=== PATIENT | male | born 1970 | race Caucasian/White ===

== ENCOUNTER → 2018-10-16 | Outpatient (CLI) | payer OTHER ==
[2018-10-16 08:39] LABS: BASOPHILS # (AUTO) 0.03 x10^3/uL (0-0.1); BASOPHILS % (AUTO) 0 % (0-1); EOSINOPHILS # (AUTO) 0.56 x10^3/uL (0-0.4); EOSINOPHILS % (AUTO) 6 % (1-7); LYMPHOCYTES # (AUTO) 2.09 x10^3/uL (1-3.4); LYMPHOCYTES % (AUTO) 23 % (22-44); MD NO; MEAN CORPUSCULAR HEMOGLOBIN 30.5 pg (27.5-34.5); MEAN CORPUSCULAR HGB CONC 32.9 g/dL (33.2-36.2); MEAN CORPUSCULAR VOLUME 92.7 fL (81-97); MEAN PLATELET VOLUME 6.5 fL (7.4-10.4); MONOCYTES # (AUTO) 0.66 x10^3/uL (0.2-0.8); MONOCYTES % (AUTO) 7 % (2-9); NEUTROPHILS # (AUTO) 5.68 x10^3/uL (1.8-6.8); NEUTROPHILS % (AUTO) 63 % (42-75); PLATELET COUNT 322 x10^3/uL (130-400); RED BLOOD COUNT 4.92 x10^6/uL (4.38-5.82); RED CELL DISTRIBUTION WIDTH 14.6 % (9.4-14.8)
[2018-10-16 08:51] LABS: ANION GAP 8 mmol/L (5-15); CALCIUM 8.7 mg/dL (8.5-10.1); CHLORIDE 109 mmol/L (98-107)
[2018-10-16 09:00] LABS: ALANINE AMINOTRANSFERASE 59 U/L (12-78); ALKALINE PHOSPHATASE 87 U/L (45-117); BILIRUBIN,TOTAL 0.7 mg/dL (0.2-1.0); CHOL/HDL RATIO 4.3; CHOLESTEROL, TOTAL 226 mg/dL (140-239); CREATININE 1.21 mg/dL (0.7-1.3); HDL CHOL % 23 % (26-37); HDL CHOLESTEROL (DIRECT) 52 mg/dL (40-60); LDL CHOLESTEROL,CALCULATED 158 mg/dL (54-169); PSA SCREEN 0.56 ng/mL (0.00-4.00); THYROID STIMULATING HORMONE 0.842 mIU/L (0.358-3.740); TOTAL PROTEIN 7.2 g/dL (6.4-8.2); TRIGLYCERIDES 81 mg/dL (50-200); VLDL CHOLESTEROL 16 mg/dL (0-25)
[2018-10-16 09:23] LABS: HEMOGLOBIN A1C 5.6 % (4.2-6.3)
== END | disposition home or self-care (01) ==
LOC: LAB 08:22
PROVIDERS: ATTEND Family Medicine
DX: Z13.1 Encounter for screening for diabetes mellitus (principal); Z13.220 Encounter for screening for lipoid disorders; Z12.5 Encounter for screening for malignant neoplasm of prostate; F41.9 Anxiety disorder, unspecified; F51.5 Nightmare disorder; R06.83 Snoring; R12 Heartburn; R39.12 Poor urinary stream; R53.83 Other fatigue; R68.82 Decreased libido
CPT/HCPCS: 36415; 80053; 80061; 82306; 83036; 84402; 84403; 84439; 84443; 85025; G0103

== ENCOUNTER 2018-12-20 15:21 | Outpatient (CLI) | payer OTHER | END 2018-12-20 23:59 | disposition home or self-care (01) | LOC: CVU 15:21 | PROVIDERS: ATTEND Internal Medicine Cardiovascular Disease | DX: I07.1 Rheumatic tricuspid insufficiency (principal) | CPT/HCPCS: 93306 ==

== ENCOUNTER 2019-01-10 08:07 | Outpatient (CLI) | payer OTHER | END 2019-01-10 23:59 | disposition home or self-care (01) | LOC: PETCFH 08:07 | PROVIDERS: ATTEND Family Medicine | DX: R12 Heartburn (principal) | CPT/HCPCS: 78227; A9537; J2805 ==

== ENCOUNTER 2019-03-21 07:56 | Day surgery (SDC) | payer OTHER ==
[~2019-03-21] VITALS: Ht 170.2 cm; Wt 97.2 kg
[~2019-03-21 07:56] MED LIST: CHOL2000 PO; GLUC500T11 PO; IBUP-1902 PO; MULT-658 PO; OMEG-157 PO; OMEP20TA62 PO
[2019-03-21] MEDS ORDERED: LACTATED RINGERS 1,000 ML IV SCH (08:26)
[2019-03-21 08:29] VITALS: BP 146/96
[2019-03-21] MEDS ORDERED: PROPOFOL 10 MG/ML, 50ML ONE (10:04)
[2019-03-21] MEDS ORDERED: PROMETHAZINE 25 MG/ML, 1ML IV PRN (10:30)
[2019-03-21] MEDS ORDERED: ONDANSETRON 2MG/ML, 2ML IV PRN (10:30)
[2019-03-21] MEDS ORDERED: PROMETHAZINE 12.5 MG SUPP PR PRN (10:30)
[2019-03-21] MEDS ORDERED: LABETALOL 5MG/ML, 20ML IV PRN (10:30)
[2019-03-21] MEDS ORDERED: ALBUTEROL SULFATE 2.5 MG/3 ML NPPB PRN (10:30)
[2019-03-21] MEDS ORDERED: EPHEDRINE 50 MG/ML, 1ML IVPush PRN (10:30)
[2019-03-21] MEDS ORDERED: DIAZEPAM 5 MG/ML, 2ML IVPush PRN (10:30)
[2019-03-21] MEDS ORDERED: FENTANYL PF 100 MCG/2ML IV PRN (10:30)
[2019-03-21] MEDS ORDERED: MEPERIDINE/PF 25MG/ML,1ML IVPush PRN (10:30)
[2019-03-21] MEDS ORDERED: MIDAZOLAM 1 MG/ML, 2ML IV PRN (10:30)
[2019-03-21] MEDS ORDERED: HYDROmorphone 2 MG/ML, 1ML IVPush PRN (10:30)
[2019-03-21] MEDS ORDERED: HALOPERIDOL 5 MG/ML IV PRN (10:30)
[2019-03-21] MEDS ORDERED: hydrALAzine 20 MG/ML, 1ML IV PRN (10:30)
[2019-03-21] MEDS ORDERED: OXYcodone 5 MG/5 ML ORAL.SOL UDC PO PRN (10:30)
[2019-03-21] MEDS ORDERED: ONDANSETRON ODT 8 MG PO PRN (10:30)
== END 2019-03-21 11:55 | disposition home or self-care (01) ==
LOC: OUT 07:56
PROVIDERS: ATTEND Internal Medicine Gastroenterology
DX: R13.10 Dysphagia, unspecified (principal); K22.2 Esophageal obstruction; K21.0 Gastro-esophageal reflux disease with esophagitis; K44.9 Diaphragmatic hernia without obstruction or gangrene
CPT/HCPCS: 43239; 43248; 88305; J2704; J7120

== ENCOUNTER 2019-10-05 16:34 | Outpatient (CLI) | payer OTHER | END 2019-10-05 23:59 | disposition home or self-care (01) | LOC: RAD 16:34 → EDSTATUS 17:00 → RAD 23:59 | PROVIDERS: ATTEND Family Medicine | DX: Z02.9 Encounter for administrative examinations, unspecified (principal) ==

== ENCOUNTER → 2019-10-08 | Outpatient (CLI) | payer OTHER ==
[~2019-10-08] MED LIST changes: +GADOTERATE 10 MMOL/20 ML VIAL ONE
== END | disposition home or self-care (01) ==
LOC: RAD 16:25
PROVIDERS: ATTEND Family Medicine
DX: R51 Headache (principal); J32.0 Chronic maxillary sinusitis; J34.89 Other specified disorders of nose and nasal sinuses
CPT/HCPCS: 70553; A9575

== ENCOUNTER 2019-10-24 13:03 | Outpatient (CLI) | payer OTHER ==
[~2019-10-24 13:03] MED LIST changes: -GADOTERATE 10 MMOL/20 ML VIAL ONE
== END 2019-10-24 23:59 | disposition home or self-care (01) ==
LOC: CFH 13:03
PROVIDERS: ATTEND Family Medicine
DX: N63.0 Unspecified lump in unspecified breast (principal); N62 Hypertrophy of breast
CPT/HCPCS: 76642; 77066